=== PATIENT | male | born 1980 | race Caucasian/White ===

== ENCOUNTER 2023-07-05 15:50 | Emergency (ER) | payer MEDICAID, SELFPAY ==
--- NOTE | ~2023-07-05 | XR_ITS ---
EXAMINATION: XR FINGER, RIGHT CLINICAL INFORMATION: Third digit laceration distal finger COMPARISON: None available. TECHNIQUE: Three views of the right middle finger. FINDINGS: There is a comminuted fracture distal phalangeal tuft third digit with mild soft tissue swelling. No major displacement. Rest of the digits are unremarkable. The joint spaces are preserved normal. XR/XR finger RT min 2V IMPRESSION: Comminuted fracture distal phalangeal tuft middle finger with mild soft tissue swelling. No major displacement
[2023-07-05 15:52] VITALS: BP 137/106; PULSE 55; RESP 18; TEMP 37; O2SAT 98; BMI 23.0
--- NOTE | 2023-07-05 15:55 | ED.SKABFB ---
HPI - Skin/Abscess/Foreign Bdy General Chief complaint: Wound/Laceration Stated complaint: broken finger Time Seen by Provider: 07/05/23 16:53 Source: patient Mode of arrival: ambulatory Limitations: no limitations History of Present Illness HPI narrative: 43-year-old male with no significant past medical history presents to the emergency department, with his friend, for management a laceration on his right middle finger. He reports he was working and his finger was crushed when an air tank slipped off a cart. He reports significant pain, nausea, and dizziness. He reports paresthesias to the tip of the right 3rd finger and reports that bleeding is controlled. He is unsure when his last tetanus shot was. Pertinent positives and negatives discussed in HPI Related Data Previous Rx's Medication Instructions Recorded cephalexin 500 mg capsule 500 mg PO QID 7 days #28 caps 07/05/23 oxycodone 5 mg capsule 5 mg PO Q8H PRN pain #10 caps 07/05/23 Allergies Allergy/AdvReac Type Severity Reaction Status Date / Time ibuprofen AdvReac Itching Verified 07/05/23 15:51 Review of Systems Review of Systems: Yes all other systems are reviewed and are negative [facility] Social History Social History Advance Directives: No Advance Directives Information Provided: No Physical Exam Vital Signs: Vital Signs: Last Vital Signs Temp 98.6 F 07/05/23 15:52 Pulse 55 07/05/23 15:52 Resp 18 07/05/23 15:52 BP 137/106 H 07/05/23 15:52 Pulse Ox 98 07/05/23 15:52 O2 Del Method Room Air 07/05/23 15:52 BMI result Body Mass Index 23.0 Nursing notes and vital signs reviewed. GENERAL APPEARANCE: A&0 x 4, generally well appearing, no acute distress HENMT: Normal to inspection, atraumatic, face symmetrical. Normal external ears, nose, and oropharynx clear. EYE: PERRLA, EOM intact, structures appear normal NECK: Supple without stiffness or restricted ROM. HEART: Normal rate and regular rhythm, normal S1/S2, no M/R/G LUNGS: LS CTA, moving air well. Able to speak in complete sentences. No crackles, wheezes, or rhonchi auscultated BACK: No CVAT, no obvious deformity EXTREMITIES: Normal capillary refill. Crush injury and laceration to right 3rd finger with difficulty in range of motion secondary to pain. NEUROLOGICAL: Alert and oriented, moving all 4 extremities with equal strength. CN not formally tested but appearing grossly intact. Observed to ambulate with normal gait. Cognition normal SKIN: Warm and dry without any lesions, rash, or visible sores Course Course Course Narrative: RME:?43 yo male here w/ right finger laceration. he reports while at work, he was pushing cart that was carrying air tanks when one fell off and crushed his right 3rd finger. this happened [employer]. immediate pain, bleeding. did not wash the area our prior to arrival. tetanus not utd. 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 imaging and tdap ordered. will require repair. Full HPI, ROS and PE to be performed by the primary ED provider. Medications Administered Discontinued Medications Generic Name Dose Route Start Last Admin Trade Name Freq PRN Reason Stop Dose Admin Bupivacaine HCl 10 ml 07/05/23 17:33 07/05/23 17:52 Bupivacaine Mpf 0.25 % 10 Ml Vial INFILTRATI 07/05/23 17:34 10 ml ONCE ONE Administration Cephalexin HCl 500 mg 07/05/23 17:26 07/05/23 18:15 Cephalexin 500 Mg Capsule PO 07/05/23 17:27 500 mg ONCE ONE Administration Diphtheria/Tetanus/Acell Pertussis 0.5 ml 07/05/23 15:54 07/05/23 17:09 Diphth,Pertus(Acell),Tet Adult 0.5 Ml Syringe IM 07/05/23 15:55 0.5 ml .ONCE ONE Administration Lidocaine HCl 30 ml 07/05/23 17:08 07/05/23 17:52 Lidocaine Hcl 1 % 20 Ml Vial INFILTRATI 07/05/23 17:09 30 ml ONCE ONE Administration Medical Decision Making Medical Decision Making MDM Narrative: Old records reviewed for previous imaging, lab studies, ECGs, and notes. Patient was assessed the emergency department with no acute distress or toxicity noted. Laceration right finger completed showing a tuft fracture of the right 3rd finger, per my interpretation. Radiology reading show a comminuted fracture of the distal phalangeal tuft with mild soft tissue swelling and no major displacement. Laceration cleansed and closed. Patient tolerated without incident. See procedure note for further detail. Seven day course of antibiotics and the patient's preferred pharmacy with 1st dose given here in the emergency department. Patient is safe for discharge at this time with plan for [id number] Tylenol and/or NSAID such as ibuprofen or naproxen for fever/discomfort with dosing as per packaging. HPI, PE, diagnostics, and plan discussed with patient and family with no unanswered questions at this time. Strict return precautions given to return to the emergency department with new, worsening, or concerning emergent symptoms. Recommended to follow-up with there primary care provider in 24-48 hours for further treatment and management. Differential Diagnosis Differential Diagnoses: The differential diagnosis associated with the presentation includes But not limited to fracture, dislocation, contusion, laceration, abrasion, sepsis, malignancy Procedures Laceration Laceration 1: Site: hand Side (If applicable): right (Right third finger) Size (cm): 2.5 Description: irregular Local Anesthetic: lidocaine 1% and bupivacaine 0.25% Amount of anesthesia used (mL): 10 Pre-repair: wound explored, irrigated extensively, deep structures intact and extensive debridement Skin layer closed with: nylon Size (cm): 4-0 Number of sutures: 14 Technique: simple, interrupted Discharge Plan Discharge Clinical Impression: Laceration, Crushing injury of finger, right, Closed fracture of tuft of distal phalanx of finger Patient Disposition: Home, Self-Care Instructions: Care For Your Stitches (ED), Laceration (ED), Finger Fracture (ED), Crush Injury (ED) Additional Instructions: Please return in 7-10 days for suture removal Prescriptions: New oxycodone 5 mg capsule 5 mg PO Q8H PRN (Reason: pain) Qty: 10 0RF Rx Instructions: Partial Fill upon patient request. cephalexin 500 mg capsule 500 mg PO QID 7 Days Qty: 28 0RF [place]: [facility] [facility] [place] Group] [facility] [place] [facility] [place] Group[place] [facility] [place] [facility] [Provider Group] Soha Lara MD [Physician] - (As needed) Stand Alone Forms: Work/School Release Print Language: Singaporean
[2023-07-05] MEDS: Diphth,Pertus(ACell),Tet Adult 0.5 ML SYRINGE IM (17:09)
[2023-07-05] MEDS: Lidocaine HCl 1 % 20 ML VIAL 30 ML INFILTRATI (17:52)
[2023-07-05] MEDS: BUPivacaine MPF 0.25 % 10 ML VIAL INFILTRATI (17:52)
[2023-07-05] MEDS: cephALEXin 500 MG CAPSULE PO (18:15)
== END 2023-07-05 19:05 | disposition home or self-care (01) ==
PROVIDERS: Emergency Provider Emergency Medicine
DX: S62.632A Displaced fracture of distal phalanx of right middle finger, initial encounter for closed fracture (principal); S61.212A Laceration without foreign body of right middle finger without damage to nail, initial encounter; W23.0XXA Caught, crushed, jammed, or pinched between moving objects, initial encounter; Y93.9 Activity, unspecified; Y92.9 Unspecified place or not applicable; Y99.9 Unspecified external cause status
CPT/HCPCS: 12041; 73140; 90471; 90715; 99281; 99284; J0665

== ENCOUNTER 2024-01-01 20:07 | Emergency (ER) | payer MEDICAID, SELFPAY ==
[2024-01-01 20:13] VITALS: BP 135/82; PULSE 99; RESP 18; TEMP 36.8; O2SAT 99; BMI 21.4
[2024-01-01 20:30] LABS: MANUAL DIFF FLAG NO
[2024-01-01 20:35] LABS: Basophils Absolute Auto 0.1 X10*3/uL (0.0-0.2); Basophils Percent Auto 0.7 % (0-2); Eosinophils Absolute Auto 0.2 X10*3/uL (0.0-0.4); Eosinophils Percent Auto 1.4 % (0-4); Hematocrit 42.4 % (42.0-52.0); Hemoglobin 14.9 g/dl (14.0-18.0); Imm Gran Abs Auto 0.07 X10*3/uL (0.00-0.03); Imm Gran Pct Auto 0.4 % (0.0-0.4); Lymphocytes Absolute Auto 3.3 X10*3/uL (1.2-4.9); Lymphocytes Percent Auto 20.2 % (20-40); Mean Corpuscular HGB Conc 35.1 g/dl (31.0-36.0); Mean Corpuscular Hemoglobin 30.8 pg (27.0-33.0); Mean Corpuscular Volume 87.8 fL (80.0-98.0); Mean Platelet Volume 9.1 fL (9.4-12.4); Monocytes Absolute Auto 1.4 X10*3/uL (0.1-1.2); Monocytes Percent Auto 8.7 % (2-11); Neutrophils Absolute Auto 11.1 x10*3/uL (2.0-8.3); Neutrophils Percent Auto 68.6 % (45-73); Platelet Count 362 X10*3/uL (160-400); Red Blood Count 4.83 X10*6/uL (4.60-5.80); Red Cell Distribution Width 12.1 % (11.0-16.0); White Blood Count 16.2 X10*3/uL (4.8-10.8)
--- NOTE | 2024-01-01 20:47 | ED_ITS ---
HPI - Skin/Abscess/Foreign Bdy General Chief complaint: Skin/Abscess/Foreign Body Stated complaint: groin abscess Time Seen by Provider: 01/01/24 22:58 Source: patient Mode of arrival: ambulatory Limitations: no limitations History of Present Illness ED Provider: chantale EDWARDS narrative: Patient's history of recurrent perianal abscesses status post I and D comes here for similar abscess started 3 days ago localized to superficial part of the perineum Related Data Previous Rx's ?Medication ?Instructions ?Recorded cephalexin 500 mg capsule 500 mg PO QID 7 days #28 caps 07/05/23 oxycodone 5 mg capsule 5 mg PO Q8H PRN pain #10 caps 07/05/23 cephalexin 500 mg capsule 500 mg PO QID 10 days #40 caps 01/01/24 doxycycline hyclate 100 mg tablet 100 mg PO BID #20 tabs 01/01/24 tramadol 50 mg tablet 50 mg PO Q6H PRN pain #20 tabs 01/01/24 Allergies Allergy/AdvReac Type Severity Reaction Status Date / Time ibuprofen AdvReac Itching Verified 01/01/24 20:16 Review of Systems 2 Review of Systems: Yes all other systems are reviewed and are negative PMFSH Social History Social History Advance Directives: No Advance Directives Information Provided: No Physical Exam 2 Vital Signs: Vital Signs: Last Vital Signs Temp 98.4 F 01/01/24 23:47 Pulse 81 01/01/24 23:47 Resp 16 01/01/24 23:47 BP 125/82 01/01/24 23:47 Pulse Ox 98 01/01/24 23:47 O2 Del Method Room Air 01/01/24 23:47 BMI result Body Mass Index 21.4 Skin: Full body images: 1. 3 x 3 cm indurated area at the base of the scrotum on the left side freely mobile Course Course Course Narrative: Rapid medical exam before by Mirtha Chacon PA-C. 43-year-old male with recurrent perirectal abscesses presents with a perirectal abscess times 3-4 days. Painful swelling noted along inferior left buttock crease. Denies fever, denies bloody or purulent rectal discharge. On exam, tender, fluctuant swelling noted along inferior left buttock crease, no active blood or purulent drainage from the rectum. We will screen basic labs, the patient will likely require a CT scan. Patient is hemodynamically stable, he will return to the weight room pending the remainder of his assessment. Medications Administered Discontinued Medications Generic Name Dose Route Start Last Admin Trade Name Freq PRN Reason Stop Dose Admin Cephalexin HCl 500 mg 01/01/24 23:12 01/01/24 23:36 Cephalexin 500 Mg Capsule PO 01/01/24 23:13 500 mg ONCE ONE Administration Doxycycline Monohydrate 100 mg 01/01/24 23:12 01/01/24 23:36 Doxycycline Monohydrate 100 Mg Capsule PO 01/01/24 23:13 100 mg ONCE ONE Administration Lidocaine HCl 10 ml 01/01/24 23:12 01/01/24 23:46 Lidocaine Hcl 1 % Mpf 5 Ml Vial INFILTRATI 01/01/24 23:13 10 ml ONCE ONE Administration Oxycodone HCl 10 mg 01/01/24 23:27 01/01/24 23:36 Oxycodone Hcl Immed Release 5 Mg Tablet PO 01/01/24 23:28 10 mg ONCE ONE Administration Medical Decision Making Lab Data 01/01/24 20:24 01/01/24 20:24 Labs: Lab Results 01/01/24 Range/Units 20:24 WBC 16.2 H (4.8-10.8) X10*3/uL RBC 4.83 (4.60-5.80) X10*6/uL Hgb 14.9 (14.0-18.0) g/dl Hct 42.4 (42.0-52.0) % MCV 87.8 (80.0-98.0) fL MCH 30.8 (27.0-33.0) pg MCHC 35.1 (31.0-36.0) g/dl RDW 12.1 (11.0-16.0) % Plt Count 362 (160-400) X10*3/uL MPV 9.1 L (9.4-12.4) fL Immature Gran % (Auto) 0.4 (0.0-0.4) % Neut % (Auto) 68.6 (45-73) % Lymph % (Auto) 20.2 (20-40) % Schuyler % (Auto) 8.7 (2-11) % Eos % (Auto) 1.4 (0-4) % Baso % (Auto) 0.7 (0-2) % Lymph # (Auto) 3.3 (1.2-4.9) X10*3/uL Schuyler # (Auto) 1.4 H (0.1-1.2) X10*3/uL Eos # (Auto) 0.2 (0.0-0.4) X10*3/uL Baso # (Auto) 0.1 (0.0-0.2) X10*3/uL Abs Immat Gran (auto) 0.07 H (0.00-0.03) X10*3/uL Absolute Neuts (auto) 11.1 H (2.0-8.3) x10*3/uL Absolute Nucleated RBC 0.000 (0.0-0.012) X10*3/uL Nucleated RBC % (auto) 0.0 (0.0-0.2) /100WBC Sodium 138 (135-145) mmol/L Potassium 3.5 (3.3-5.1) mmol/L Chloride 105 (96-108) mmol/L Carbon Dioxide 26 (22-29) mmol/L Anion Gap 11 L (12-20) BUN 14 (9-16) mg/dL Creatinine 1.07 (0.5-1.4) mg/dL Estim Creat Clear Calc 88.6 Estimated GFR > 60 Random Glucose 105 (60-115) mg/dL Calcium 9.3 (8.4-10.2) mg/dL Magnesium 1.7 (1.6-2.6) mg/dL Total Bilirubin 0.2 (0.0-1.0) mg/dL AST 15 (5-37) U/L ALT 14 (0-40) U/L Alkaline Phosphatase 81 (39-117) U/L Total Protein 7.6 (6.5-8.0) g/dL Albumin 4.0 (3.5-5.0) g/dL Procedures Abscess I/D Site: scrotum (Perineum) Side (if applicable): left Local Anesthetic: lidocaine 1% Amount of anesthesia used (mL): 10 Technique: incised with blade Amount of fluid expressed (mL): 5 Sent for culture/gram staining?: No Irrigation: No Packing used?: iodoform Discharge Plan Discharge Clinical Impression: Abscess of skin or subcutaneous tissue Patient Disposition: Home, Self-Care Instructions: Abscess Incision and Drainage (DC) Additional Instructions: Take antibiotics as prescribed Follow with your PCP/surgeon Remove packing in 2 days Prescriptions: New cephalexin 500 mg capsule 500 mg PO QID 10 Days Qty: 40 0RF doxycycline hyclate 100 mg tablet 100 mg PO BID Qty: 20 0RF tramadol 50 mg tablet 50 mg PO Q6H PRN (Reason: pain) Qty: 20 0RF No Action oxycodone 5 mg capsule 5 mg PO Q8H PRN (Reason: pain) Qty: 10 0RF Rx Instructions: Partial Fill upon patient request. cephalexin 500 mg capsule 500 mg PO QID 7 Days Qty: 28 0RF Referrals: Rohit Us MD [Physician] - 3 days Interventions: ED Discharge Assessment Last Done: 01/01/24 23:47 Discharge Date/Time: 01/01/24 23:48 Print Language: Greenlandic
[2024-01-01 20:53] LABS: Alanine Aminotransferase 14 U/L (0-40); Alkaline Phosphatase 81 U/L (39-117); Anion Gap 11 (12-20); Aspartate Amino Transferase 15 U/L (5-37); Bilirubin Total 0.2 mg/dL (0.0-1.0); Blood Urea Nitrogen 14 mg/dL (9-16); Calcium 9.3 mg/dL (8.4-10.2); Carbon Dioxide 26 mmol/L (22-29); Chloride 105 mmol/L (96-108); Creatinine Clr Calc Pharmacy 88.6; Estimated Glomerular Filt Rate > 60; Glucose Random 105 mg/dL (60-115); Magnesium 1.7 mg/dL (1.6-2.6); Potassium 3.5 mmol/L (3.3-5.1); Sodium 138 mmol/L (135-145); Total Protein 7.6 g/dL (6.5-8.0)
[2024-01-01] MEDS: oxyCODONE HCl Immed Release 5 MG TABLET 10 MG PO (23:36)
[2024-01-01] MEDS: cephALEXin 500 MG CAPSULE PO (23:36)
[2024-01-01] MEDS: Doxycycline Monohydrate 100 MG CAPSULE PO (23:36)
[2024-01-01 23:40] VITALS: BP 125/82; PULSE 81; RESP 16; TEMP 36.9; O2SAT 98
[2024-01-01] MEDS: Lidocaine HCl 1 % MPF 5 ML VIAL 10 ML INFILTRATI (23:46)
[2024-01-01 23:47] VITALS: BP 125/82; PULSE 81; RESP 16; TEMP 36.9; O2SAT 98
== END 2024-01-01 23:48 | disposition home or self-care (01) ==
PROVIDERS: Physician Assistant Medical; Emergency Provider Internal Medicine
DX: L02.214 Cutaneous abscess of groin (principal); Z79.899 Other long term (current) drug therapy
CPT/HCPCS: 10060; 36415; 80053; 83735; 85025; 99283; 99284